=== PATIENT | male | born 1950 | race Caucasian/White ===

== ENCOUNTER 2016-11-20 05:41 | Day surgery (SDC) | payer BC ==
--- NOTE | 2016-11-15 10:06 | HP ---
DATE OF CLINIC: 10/31/2016 STACI ISAACS I : 1950 PLANNED PROCEDURE: Right Shoulder Arthroscopic Rotator Cuff Repair DATE OF PROCEDURE: November 20, 2016 SURGEON: Dane Baires M.D. PCP: Dr. Hamilton Butler HISTORY OF PRESENT ILLNESS Staci Isaacs is a 66 year old male. * Medication list reviewed with patient allergy list reviewed with patient. * Tried NSAIDS * Tried Physical Therapy Mr. Isaacs is in today pre-operatively for his upcoming right shoulder arthroscopy with Dr. Baires on 11/20/16. Patient presents in good spirits and is ready to proceed. He notes his contralateral shoulder has been moderately uncomfortable as well recently but has no limitation in motion or strength. The pain is proximal/subacromial. He otherwise denies recent illness, change in health, or prior surgical complications. His recent consult with Dr. Baires follows: 66-year-old, RHD male who fell down on 07/24/16. He fell down a few garage steps at a friend's house. He tried to catch himself with his right arm reaching out overhead and had immediate pain in the shoulder anteriorly and radiating laterally. This has persisted despite PT at [facility]. If anything he feels that it is somewhat worse. He does have night pain that awakens him from sleep. No radicular symptoms. No prior shoulder problems of significance. He is interested in discussion of additional management. He is using ibuprofen. He has used some [place] as well. He has no significant comorbidities. CURRENT MEDICATION * Aleve 220 MG Capsule 1 twice a day 0 days, 0 refills * Benadryl Allergy 25 MG Capsule as needed 0 days, 0 refills * [facility] Melatonin 3 MG Tablet as directed 6mg prn sleep, 0 days, 0 refills * Ibuprofen 200 MG Tablet as directed 8-12 tabs a day, 0 days, 0 refills * Lipitor 20 MG Tablet as directed half a tab twice weekly, 0 days, 0 refills * Petersburg 5-325 MG Tablet 1-2 po q 4 hours prn, 3 days, 0 refills PAST MEDICAL/SURGICAL HISTORY Reported: Surgical / Procedural: Appendectomy around 1970. Right inguinal hernia. SOCIAL HISTORY Behavioral: Caffeine use and non-smoker never smoked. Smoking status: Never smoker. Alcohol: Alcohol about a drink a day on average and alcohol use. Work: Occupation Radiology physician. ALLERGIES * No Known Allergies REVIEW OF SYSTEMS Systemic: No fever and no recent weight change. Head: No head symptoms. Cardiovascular: No cardiovascular symptoms. Pulmonary: No pulmonary symptoms. Gastrointestinal: No gastrointestinal symptoms. Psychological: No psychological symptoms. Skin: No skin lesions and no rash. PHYSICAL FINDINGS * Vitals taken 10/31/2016 11:06 am BP-Sitting R 119/76 mmHg 100 - 120/60 - 80 BP Cuff Size Regular Pulse Rate-Sitting 62 bpm 50 - 100 Temp-Oral 97.7 F 96 - 101 Height 70.5 in 64 - 74 Weight 186 lbs 123 - 215 Body Mass Index 26.3 kg/m2 Body Surface Area 2.03 m2 Pain Level 2 Ears, Nose, Throat: * ENT: normal. Lungs: * Clear to auscultation. Cardiovascular: Heart Rate and Rhythm: * Normal. Abdomen: * Normal. Neurological: Motor: * Dominant Hand = Right Hand. Patient is a well-developed, well-nourished male in no acute distress, normal-appearing mood and affect. Evaluation of the shoulder girdle shows skin integrity to be well preserved, no wounds, rashes or lesions. There is no obvious atrophy or asymmetry compared to the contralateral side. He is tender in the anterolateral subacromial space and mildly over the anterior shoulder. NT over the tuberosity. NT over the trapezius. NT over the AC joint and sternoclavicular joint. ROM actively is 150 degrees of elevation, 140 degrees of abduction. Passively 165 degrees of elevation with 160 degrees of abduction. This is comparable to the contralateral side. He does have pain with impingement sign I and significantly with impingement sign II. Biceps provocation tests are equivocal. He has discomfort with resisted supraspinatus testing and give-way weakness. Normal external rotation strength testing, negative belly press. Negative cross arm adduction. Biceps bulk is normal. Cursory elbow exam is normal. Distal light touch sensation and motor function are intact and symmetric. Pulses are palpable. Spurling's test is negative. TESTS X-rays, 3 radiographs from [facility] of the right shoulder from 10/09/16 are reviewed. These show no evidence of significant bony abnormality. Outlet view is not included. Ultrasound done at [facility] was discussed with the reading radiologist who feels that this is consistent with a tear of the anterior supraspinatus without retraction. It was measured at roughly 1cm. ASSESSMENT * Acute right rotator cuff sprain (capsule) Right shoulder rotator cuff tear involving the supraspinatus from an injury approximately 2 1/2 months ago. THERAPY * Patient fall risk screen positive. * Patient eligible for fall risk assessment. * Patient received fall risk assessment. PLAN * Unsp rotatr-cuff tear/ruptr of right shoulder, not trauma Physical Therapy: *Other * Shoulder arthroscopy with rotator cuff repair -right Discussed with patient in detail the limitations, expectations as well as risks and possible complications of surgery including, but not limited to wound problems or infection, neurovascular injury, continued pain over time that may require additional operative or non-operative treatment. Patient also realizes the perioperative risks including risks associated with anesthesia and would like to proceed. A full PAR conference was held, questions and concerns addressed and informed consent was obtained. Patient will be sent from my office for completion of the preoperative workup. CARE TEAM Hamilton Butler MD Internal Medicine CC: Hamilton Butler MD Internal Medicine [facility] RS/sg
[~2016-11-20 05:41] MED LIST: CEFAZOLIN SODIUM 2 GRAM PREMIX 100 ML IV SCH; IV START KIT ONE; LACTATED RINGERS 1,000 ML ONE
[2016-11-20] MEDS ORDERED: CEFAZOLIN SODIUM 2 GRAM PREMIX 100 ML IV ONE (06:22)
[2016-11-20] MEDS ORDERED: ROPIVACAINE 0.5% 30 ML VIAL ONE ×2 (06:39→08:22)
[2016-11-20] MEDS ORDERED: MIDAZOLAM HCL 5 MG/5 ML VIAL ONE (06:43)
[2016-11-20] MEDS ORDERED: FENTANYL 5 ML ONE (06:43)
[2016-11-20] MEDS ORDERED: NERVE BLOCK PROCEDURAL TRAY 1 EACH ONE (06:52)
[2016-11-20] MEDS ORDERED: EPINEPHRINE 3 MG in SODIUM CHLORIDE 3 L IRRIG BAG 3,000 ML IR PRN (07:10)
[2016-11-20] MEDS ORDERED: BUPIVACAINE 0.25% EPI PF 30 ML VIAL ONE (07:24)
[2016-11-20] MEDS ORDERED: SODIUM CHLORIDE 0.9% 50 ML ONE (07:24)
[2016-11-20] MEDS ORDERED: ROCURONIUM BROMIDE 10 MG/ML DOSE IV ONE (08:22)
[2016-11-20] MEDS ORDERED: SUCCINYLCHOLINE CHL 20 MG/ML DOSE ONE (08:22)
[2016-11-20] MEDS ORDERED: LIDOCAINE 2% (PRES FREE) 5 ML VIAL ONE (08:22)
[2016-11-20] MEDS ORDERED: PROPOFOL 20 ML IV ONE (08:22)
[2016-11-20] MEDS ORDERED: ONDANSETRON 4 MG/2ML 2 ML VIAL ONE (08:27)
[2016-11-20] MEDS ORDERED: DEXAMETHASONE SOD PHOS 4 MG/1 ML VIAL ONE (08:27)
[2016-11-20] MEDS ORDERED: HYDROMORPHONE HCL 1 MG/ML SYRINGE IV PRN ×2 (08:35→10:22)
[2016-11-20] MEDS ORDERED: ON-Q PUMP/ROPIVACAINE 0.2% 400 ML in PREMIX BAG 1 EACH NB PRN (08:35)
[2016-11-20] MEDS ORDERED: ONDANSETRON 4 MG/2ML 2 ML VIAL IV PRN ×2 (08:35→10:22)
[2016-11-20] MEDS ORDERED: ATROPINE SULFATE 0.4 MG/1 ML VIAL IV PRN (08:35)
[2016-11-20] MEDS ORDERED: NALOXONE HCL 0.4 MG/ML VIAL IV PRN (08:35)
[2016-11-20] MEDS ORDERED: MEPERIDINE 25 MG/ML SYRINGE IV PRN (08:35)
[2016-11-20] MEDS ORDERED: FENTANYL 100 MCG/2 ML VIAL IV PRN (08:35)
[2016-11-20] MEDS ORDERED: LACTATED RINGERS 1,000 ML IV SCH (08:45)
[2016-11-20] MEDS ORDERED: KETOROLAC TROMETHAMINE 30 MG/ML 1 ML VIAL ONE (09:05)
[2016-11-20] MEDS ORDERED: GLYCOPYRROLATE 0.2 MG/ML 1ML VIAL ONE (09:35)
[2016-11-20] MEDS ORDERED: NEOSTIGMINE METHYLSULFATE 1 MG/ML DOSE ONE (09:35)
[2016-11-20] MEDS ORDERED: ON-Q PUMP/ROPIVACAINE 0.2% 450 ML ONE (09:39)
[2016-11-20] MEDS ORDERED: FENTANYL 100 MCG/2 ML VIAL ONE (10:04)
[2016-11-20] MEDS ORDERED: KETOROLAC TROMETHAMINE 30 MG/ML 1 ML VIAL IV PRN (10:22)
[2016-11-20] MEDS ORDERED: ACETAMINOPHEN 325 MG TABLET PO PRN (10:22)
[2016-11-20] MEDS ORDERED: SODIUM CHLORIDE 0.9% 1,000 ML IV SCH (10:22)
[2016-11-20] MEDS ORDERED: OXYCODONE HCL 5 MG TABLET PO PRN (10:22)
[2016-11-20] MEDS ORDERED: HYDROMORPHONE HCL 0.5 MG/0.5 ML SYRINGE ONE (10:37)
[2016-11-20] MEDS ORDERED: HYDROMORPHONE HCL 0.5 MG/0.5 ML SYRINGE IV PRN (10:49)
--- NOTE | 2016-11-20 11:02 | PCMBPN ---
Brief Post Op Note: Date of Procedure: 11/20/16 Preoperative Diagnosis: right shoulder RCT Postoperative Diagnosis: right shoulder RCT, superior labral/biceps tear Procedure: scope/RCR right shoulder, biceps tenotomy/debride superior labral tear, SAD Surgeon: Dane Baires MD Assist: Dimitry (SIXTO) Anesthesia: general/interscalene block (Green) Condition: stable to PAR Complications: none IV Fluids: per anesthesia Urine Output: no gardner Estimated Blood Loss: minimal Tourniquet Time: none Specimens: none Implants: 4.75 swivelock x1 Drains: none
[2016-11-20] MEDS ORDERED: OXYCODONE HCL 5 MG TABLET ONE (12:14)
--- NOTE | 2016-11-21 10:10 | OP ---
STACI ISAACS [id number] : 1950 DATE OF SURGERY: November 20, 2016 PREOPERATIVE DIAGNOSIS: Right shoulder rotator cuff tear. POSTOPERATIVE DIAGNOSIS: 1. Right shoulder rotator cuff tear. 2. Right shoulder superior labral/bicipital complex tear. PROCEDURE: 1. Right shoulder arthroscopic rotator cuff repair. 2. Arthroscopic subacromial decompression, right shoulder. 3. Arthroscopic biceps tenotomy, right shoulder. SURGEON: Dane Baires M.D. ARMATURE INSPECTOR: Dimitry SAENZ) ESTIMATED BLOOD LOSS: Minimal ANESTHESIA: General plus interscalene block per Peter. FLUIDS: IV fluid replacement per anesthesia DRAINS: None COMPLICATIONS: None INDICATION: Patient is a 66-year-old male with clinical and radiographic evidence most consistent with right shoulder rotator cuff tear. They have failed to improve sufficiently with traditional nonoperative treatment and at this time would like to move forward with elective shoulder arthroscopic evaluation and management. A full PAR conference was held, questions and concerns addressed and informed consent obtained. For additional details please refer to the previously dictated preoperative History and Physical Exam. PROCEDURAL DESCRIPTION: The patient was taken to the operating room after placement of a interscalene block. A general anesthetic was induced and a laryngeal masked airway was placed. The patient was then turned into the lateral decubitus position with right side up and held with a vacuum beanbag positioner. Bony prominences were well-padded and an axillary roll was placed. The shoulder girdle and upper extremity were then prepped and draped out in the usual sterile fashion. Examination under anesthesia was normal. Preoperative IV antibiotics were given empirically. Intraoperative DVT prophylaxis consisted of bilateral foot pumps. After sterile prep and drape the arm was suspended in balanced traction in slight flexion and abduction with a STAR sleeve. Bony landmarks were delineated and the subacromial space was injected with 30mL of 0.25% Marcaine with epinephrine. The shoulder was distended with saline. A standard posterior portal was established. A 4.0 mm 30 degree arthroscope was used. An arthroscopic pump system was utilized. A photographic record was made. An additional anterior working portal was established under direct intraarticular visualization. A complete diagnostic glenohumeral arthroscopy was then performed with the following findings: Glenohumeral articular surfaces showed focal area of II-B chondromalacia inferior glenoid. Humeral head was normal. Anteriorly there was fraying of the superior half of the subscapularis. Intraarticular biceps was normal with exception of the insertion with a type II labral tear, some extension into the proximal most fibers of the biceps as well. Posteriorly there was a flap of superior labrum. Mild synovitis of the interval. No intraarticular loose bodies. There was an obvious full thickness tear of the anterior supraspinatus. Posterior cuff was normal. At this point we turned our attention to the glenohumeral joint. I felt that given the findings of the superior labrum this would be best managed operatively with a tenotomy. Biceps tenotomy was performed with a VAPR radiofrequency probe with complete release. I debrided the superior labrum including the posterior radial flap. I then used a VAPR radiofrequency probe to debride the unstable areas of the focal inferior glenoid lesion. We then placed the arthroscope into the subacromial space and established a lateral working portal. A combination of the 3.5 mm shaver as well as the VAPR radiofrequency probe was used to partially debride the bursal tissue. We were then able to more completely evaluate the bursal space with the following findings: Significant anterior acromial hook. There was also a full thickness tear of the anterior supraspinatus with minimal retraction. This measured less than 1cm in width. There was a fairly thickened anterior coracoacromial ligament. AC joint was slightly prominent, but a normal appearing capsular tissue. I released the coracoacromial ligament and then performed an anterior and lateral acromioplasty with a 4.0 mm Acromioblaster charlene using the standard template method. At this point we turned our attention to the repair of the cuff. I established an additional anterolateral working portal under intraarticular visualization. I placed a passport cannula. I used the ?orpion passer initially to place an inverted mattress suture with #2 FiberWire. This was brought laterally with traction and allowed for an anatomic reduction to the footprint. The footprint was cleaned of fibrous tissue to healthy bone. I dissected out laterally to the border of the tuberosity and brought this out to a single 4.75 biocomposite SwiveLock anchor which was placed in the standard fashion with excellent reconstitution of near normal anatomy. Satisfied, after copious irrigation, I placed a spinal needle at the site of repair through which approximately 5cc of PRP was injected at the completion of the procedure. This had been obtained and prepared in the standard fashion Cannulas were then removed. Portals sites were closed with interrupted 4-0 Nylon. A sterile bulky shoulder dressing was applied. The patient was then returned to the supine position, awakened, extubated, transferred to their hospital bed, and sent to post anesthesia recovery in stable condition. They tolerated the procedure well. Sponge, instrument and needle count were correct. TWYLA/mrw CC: Nimesh UNDERWOOD
== END 2016-11-20 14:50 | disposition home or self-care (01) ==
LOC: SDC 05:41
PROVIDERS: ATTEND Orthopaedic Surgery
PROC: 0RNJ4ZZ Release Right Shoulder Joint, Percutaneous Endoscopic Approach (ICD-10-PCS; principal; 2016-11-20)
PROC: 0LN14ZZ Release Right Shoulder Tendon, Percutaneous Endoscopic Approach (ICD-10-PCS; principal; 2016-11-20)
PROC: 0LQ14ZZ Repair Right Shoulder Tendon, Percutaneous Endoscopic Approach (ICD-10-PCS; principal; 2016-11-20)
DX: S46.011A Strain of muscle(s) and tendon(s) of the rotator cuff of right shoulder, initial encounter (principal); S43.431A Superior glenoid labrum lesion of right shoulder, initial encounter; M65.811 Other synovitis and tenosynovitis, right shoulder; W10.9XXA Fall (on) (from) unspecified stairs and steps, initial encounter; Y92.008 Other place in unspecified non-institutional (private) residence as the place of occurrence of the external cause
CPT/HCPCS: 29827; 29826; 23405; J3010 ×2; J1100; J2795 ×4; A9270; J1885; J2250; J2405; J7120; A4306; J1170; J0690